=== PATIENT | female | born 1950 | race Caucasian/White ===

== ENCOUNTER 2022-03-04 10:29 | Outpatient (CLI) | payer MEDICARE ==
[2022-03-04 11:15] LABS: #Basophils 0.1 10x3/uL (0.0-0.2); #Eosinphils 0.1 10x3/uL (0.0-0.5); #Monocytes 0.6 10x3/uL (0.0-1.1); %Basophils 1.6 % (0.0-2.0); %Eosinophils 2.5 % (0.0-6.0); %Lymphocytes 15.1 % (18.0-47.0); %Monocytes 13.5 % (0.0-10.0); %Neutrophils 67.1 % (40.0-75.0); Hemoglobin 12.1 g/dL (12.0-15.5); Mean Corpuscular HGB CONC 34.6 g/dL (32.0-36.0); Mean Corpuscular Hemoglobin 30.5 pg (27.0-33.0); Mean Corpuscular Volume 88.2 fl (81.6-98.3); Mean Platelet Volume 9.2 fl (7.4-10.4); Platelet Count 179 10x3/uL (150-450); RBC Distribution Width 13.1 % (11.5-14.5); Red Blood Cell (RBC) Count 3.97 10x6/uL (3.90-5.03); White Blood Cell (WBC) Count 4.4 10x3/uL (3.5-10.5)
[2022-03-04 11:32] LABS: Anion Gap 15 mmol/L (10-20); BUN (Urea Nitrogen) 12 mg/dL (9.8-20.1); Calc. Creatinine Clearance 0 mL/min (70-130); Calcium 9.7 mg/dL (7.8-10.44); Carbon Dioxide 26 mmol/L (23-31); Chloride 95 mmol/L (98-107); Estimated GFR 68; Glucose 78 mg/dL (80-115); Potassium 3.4 mmol/L (3.5-5.1); Sodium 133 mmol/L (136-145)
== END 2022-03-04 10:30 | disposition home or self-care (01) ==
LOC: LABBT 10:29
PROVIDERS: ATTEND Urology
DX: Z01.812 Encounter for preprocedural laboratory examination (principal); C50.911 Malignant neoplasm of unspecified site of right female breast
CPT/HCPCS: 80048; 85025; 87811

== ENCOUNTER 2022-03-09 06:26 | Day surgery (SDC) | payer MEDICARE ==
[2022-03-07 09:57] VITALS: BMI 22.8
[2022-03-09] MEDS ORDERED: Lidocaine 1% PF 5 ML VIAL ONE (10:01)
[2022-03-09] MEDS ORDERED: Ondansetron PF 4 MG/2 ML Vial ONE (10:01)
[2022-03-09] MEDS ORDERED: Ketorolac Tromethamine 30 MG/ML VIAL ONE (10:01)
[2022-03-09] MEDS ORDERED: PROPOFOL 200 MG/20 ML VIAL ONE (10:01)
[2022-03-09] MEDS ORDERED: PHENYLEPHRINE-NS 100 MCG/ML 10 ML SYRINGE ONE (10:01)
[2022-03-09] MEDS ORDERED: Metoclopramide HCl 10 MG/2 ML VIAL ONE (10:01)
[2022-03-09] MEDS ORDERED: Scopolamine 1.5 mg/72 hour Patch ONE (10:26)
[2022-03-09] MEDS ORDERED: Methylene Blue 50 MG/10 ML AMPUL ONE (12:33)
[2022-03-09] MEDS ORDERED: Bupivacaine 0.25% HCL 30 ML VIAL ONE (12:33)
[2022-03-09] MEDS ORDERED: Lidocaine 1% w/Epinephrine 1:100K 20 ML VIAL ONE (12:33)
[2022-03-09] MEDS ORDERED: CEFAZOLIN 2 GM VIAL ONE (13:14)
[2022-03-09] MEDS ORDERED: Sodium Chloride 0.9% 100 ML ONE (13:14)
[2022-03-09] MEDS ORDERED: Famotidine/PF 20 mg/2ml Vial ONE (13:36)
[2022-03-09] MEDS ORDERED: fentaNYL Citrate/PF 100 MCG/2 ML SYRINGE ONE ×2 (13:36→13:56)
[2022-03-09] MEDS ORDERED: Fentanyl 100 MCG/2 ML VIAL ONE (15:26)
== END 2022-03-09 16:45 | disposition home or self-care (01) ==
LOC: SDC 06:26
PROVIDERS: ATTEND Surgery
PROC: 0HBT0ZZ Excision of Right Breast, Open Approach (ICD-10-PCS; principal; 2022-03-09)
PROC: 07B50ZX Excision of Right Axillary Lymphatic, Open Approach, Diagnostic (ICD-10-PCS; 2022-03-09)
DX: C50.311 Malignant neoplasm of lower-inner quadrant of right female breast (principal); Z17.0 Estrogen receptor positive status [ER+]; Z79.899 Other long term (current) drug therapy
CPT/HCPCS: 19281; 19301; 38525; 71045; 76098; 78195; A9541; Q9968; 88307; 88342; A4648; J0690; J1885; J2405; J2704; J2765; J3010; J3490; S0020; S0028

== ENCOUNTER 2025-05-26 14:44 | Outpatient (CLI) | payer MEDICARE | END 2025-05-26 14:45 | disposition home or self-care (01) | LOC: SCSBT 14:44 | PROVIDERS: ATTEND Nurse Practitioner Adult Health | DX: C50.811 Malignant neoplasm of overlapping sites of right female breast (principal); M85.88 Other specified disorders of bone density and structure, other site; Z79.899 Other long term (current) drug therapy; M81.0 Age-related osteoporosis without current pathological fracture | CPT/HCPCS: 77080 ==